=== PATIENT | male | born 1950 | race Caucasian/White ===

== ENCOUNTER 2018-07-21 21:26 | Emergency (ER) | payer OTHER, SELFPAY ==
[2018-07-21 21:28] VITALS: BP 155/81; PULSE 84; RESP 20; TEMP 36.4; O2SAT 96; BMI 27.4
--- NOTE | 2018-07-21 21:47 | ED_ITS ---
HPI - Extremity Problem General Chief complaint: Extremity Injury, Upper Stated complaint: Infection on finger Time Seen by Provider: 07/21/18 21:33 Source: patient and family Mode of arrival: ambulatory Limitations: no limitations History of Present Illness HPI Narrative: 68M nonsmoker presents with his and the chief complaint of R 5th finger pain, swelling, and redness. He denies any specific or known injury. He has full, but painful range of motion. His tetanus is not up to date. He started noting some redness on Wednesday and states is has been slowly worsening. He developed a small pustule in the center of the redness. He denies any known bites. MD Complaint: extremity pain and extremity swelling Onset (ago): day(s) Pain Consistency: constant Location: right Quality: aching Radiation: none Relieving factors: rest Exacerbating factors: range of motion Associated symptoms: denies other symptoms Related Data Previous Rx's Medication Instructions Recorded doxycycline hyclate 100 mg PO BID 7 Days #14 cap 07/21/18 Allergies Allergy/AdvReac Type Severity Reaction Status Date / Time No Known Drug Allergies Allergy Verified 07/21/18 21:32 Review of Systems Review of Systems All systems reviewed & are unremarkable except as noted in HPI and below Constitutional Denies chills, Denies fever(s), Denies lethargy and Denies weakness Eyes Denies change in vision, Denies eye discharge, Denies irritation and Denies loss of vision ENT Ears, Nose, Mouth, and Throat: Denies change in voice, Denies neck pain and Denies sore throat Cardiovascular Denies chest pain, Denies irregular heart rhythm, Denies lightheadedness, Denies palpitations, Denies dyspnea, Denies dyspnea on exertion and Denies orthopnea Respiratory Denies cough, Denies dyspnea, Denies dyspnea on exertion and Denies wheezing Gastrointestinal Gastrointestinal: Denies abdominal pain, Denies change in bowel habits, Denies diarrhea, Denies nausea and Denies vomiting Genitourinary Denies hematuria, Denies flank pain, Denies urinary incontinence and Denies urinary urgency Musculoskeletal Denies neck pain Integumentary/Breasts Denies pruritus, Reports erythema, Denies rash, Reports skin pain, Reports skin swelling and Denies wounds Neurologic Denies confusion, Denies loss of vision and Denies weakness Psychiatric Denies anxiety, Denies confusion, Denies depression, Denies homicidal ideation and Denies suicidal ideation Endocrine Denies palpitations Hematologic/Lymphatic Denies easy bruising Allergic/Immunologic Denies wheezing PFSH Social History Smoking Status: Never smoker Exam Narrative Exam Narrative: GEN: AOx3 and in mild distress EYES: Pupils are equal, round, and reactive to light and accommodation. Extraoccular muscles are intact bilaterally. There is no subconjunctival hemorrhage or exudate. CHEST: Lungs are clear to auscultation bilaterally and free of wheezes, rales, or rhonchi. Heart rate is regular rhythm, there are no murmurs, clicks, rubs, or gallops. There is no chest wall tenderness. ABD: Abdomen is soft and nontender. There is no guarding or rebound. Bowel sounds are normal in all 4 quadrants. There is no mass or organomegaly. EXT: Full painless ROM of all extremities with no loss of sensation or strength. SKIN: R fifth finger with 1x1cm area of erythema on dorsum of finger, well circumscribed. No signs of Flexor Tenosynovitis or abscess. Full but painful ROM. Initial Vital Signs Initial Vital Signs: Vital Signs Temperature 97.5 F L 07/21/18 21:28 Pulse Rate 84 07/21/18 21:28 Respiratory Rate 20 07/21/18 21:28 Blood Pressure 155/81 H 07/21/18 21:28 Pulse Oximetry 96 07/21/18 21:28 Course Orders Ordered: ED Orders 07/21/18 22:01 XR finger RT min 2V Stat Discontinued Medications Diphtheria/Tetanus/Acell Pertussis (Adacel) 0.5 ml IM .ONCE ONE Stop: 07/21/18 22:03 Last Admin: 07/21/18 22:08 Dose: 0.5 ml Doxycycline Hyclate (Vibramycin) 100 mg PO NOW ONE Stop: 07/21/18 22:03 Last Admin: 07/21/18 22:08 Dose: 100 mg Vital Signs - 8 hr 07/21/18 21:28 07/21/18 22:59 Temperature 97.5 F L Pulse Rate 84 81 Respiratory Rate 20 16 Blood Pressure 155/81 H Blood Pressure [Left Arm] 151/81 H Pulse Oximetry 96 98 Discharge Plan Departure Patient Disposition: Home Clinical Impression: Cellulitis of finger of right hand Discharge Date/Time: 07/21/18 23:02 Interventions: ED Discharge Assessment Last Done: 07/21/18 23:01 Instructions: DI for Cellulitis -- Adult Activity Restrictions/Additional Instructions: *You have been diagnosed with [ Right Fifth Finger Cellulitis ] *What to do: *Take medications as directed *Follow up with your primary care provider in 2-3 days, call for an appointment. Let them know you were seen in the Emergency Department and that we ask that you be seen in follow up *Return to ER if you should have any new, worsening or concerning symptoms , such as [increasing swelling, pain, fever >101F ] Prescriptions: New doxycycline hyclate 100 mg capsule 100 mg PO BID 7 Days Qty: 14 RF: 0
--- NOTE | 2018-07-21 22:01 | DI.RAD.S_ITS ---
PROCEDURE: XR FINGER RT MIN 2V INDICATIONS: wound, possible foreign body TECHNIQUE: AP hand, 2 views of the right finger(s) acquired. COMPARISON: None. FINDINGS: Bones: No fractures or dislocations. No suspicious bony lesions. Diffuse interphalangeal, MCP and first CMC joint degeneration. There is also chronic appearing calcification projecting at the ulnar styloid. Chronic appearing intra-articular fracture involving the little finger proximal phalangeal base Little finger diffuse soft tissue swelling. No definite underlying focal osseous destruction. IMPRESSION: Diffuse right hand joint degeneration. No radiopaque foreign body. No evidence of focal osseous destruction. Dictated by: Albert Cali M.D. on 07/22/2018 at 8:37 Approved by: Albert Cali M.D. on 07/22/2018 at 8:40
[2018-07-21] MEDS: DOXYCYCLINE HYCLATE 100 MG TABLET PO (22:08)
[2018-07-21] MEDS: TET,DIPH,PERTUSS(ACELL),VAC/PF 0.5 ML SYRINGE IM (22:08)
[2018-07-21 22:59] VITALS: BP 151/81; PULSE 81; RESP 16; O2SAT 98
== END 2018-07-21 23:02 | disposition home or self-care (01) ==
PROVIDERS: Emergency Provider Emergency Medicine
DX: L03.011 Cellulitis of right finger (principal)
CPT/HCPCS: 73140; 90471; 99282; 99283; 90715

== ENCOUNTER 2021-10-11 20:26 | Emergency (ER) | payer OTHER, SELFPAY ==
[2021-10-11 20:37] VITALS: BP 150/75; PULSE 82; RESP 18; TEMP 36.8; O2SAT 97; BMI 23.7
--- NOTE | 2021-10-11 20:45 | DI.RAD.S_ITS ---
PROCEDURE: XR ANKLE LT MIN 3V INDICATIONS: Painful left ankle; possible fracture TECHNIQUE: 3 views of the ankle were acquired. COMPARISON: None. FINDINGS: Bones: No fractures or dislocations. Ankle mortise is normally aligned. No suspicious bony lesions. Soft tissues: No tibiotalar joint effusion. Achilles tendon appears normal. IMPRESSION: No trauma found. Dictated by: Derrick Plunkett M.D. on 10/11/2021 at 21:38 Approved by: Derrick Plunkett M.D. on 10/11/2021 at 21:39
--- NOTE | 2021-10-11 22:42 | ED_ITS ---
HPI - Extremity Problem General Chief complaint: Extremity Problem,Nontraumatic Stated complaint: Lt. foot pain unable to bear weight Time Seen by Provider: 10/11/21 22:13 Source: patient Mode of arrival: Wheelchair History of Present Illness HPI Narrative: Patient is a 71-year-old male who has here for evaluation left foot and ankle pain. He states that the symptoms occurred just a few hours ago. There was no specific injury although he states that he squatted down to pick something up and when he stood up he had discomfort. He has had a quite a bit of discomfort with putting weight on the area. There are several specific areas where he is having pain around his left foot. He contacted the nurse advice line who advised that he come the emergency department for further evaluation. Related Data Allergies Allergy/AdvReac Type Severity Reaction Status Date / Time No Known Drug Allergies Allergy Verified 07/21/18 21:32 Review of Systems Constitutional Constitutional: Reports system reviewed and no additional complaints, except as documented Musculoskeletal Musculoskeletal: Reports system reviewed and no additional complaints, except as documented and Reports as per HPI Integumentary/Breasts Skin/Breast: Reports system reviewed and no additional complaints, except as documented Patient History Social History Smoking Status: Former smoker Smoking Status: Former smoker alcohol intake frequency: holidays/special occasions only Substance Use Type: does not use Exam Initial Vital Signs Initial Vital Signs: Vital Signs Temperature 98.3 F 10/11/21 20:37 Pulse Rate 82 10/11/21 20:37 Respiratory Rate 18 10/11/21 20:37 Blood Pressure 150/75 H 10/11/21 20:37 Pulse Oximetry 97 10/11/21 20:37 HENMT Head: normal to inspection and normocephalic Cardio Pulses: dorsalis pedis present Skin General: no rashes or lesions noted Neuro Sensory Exam: no sensory deficits noted Extrem Other: No knee discomfort, no proximal fibular discomfort, no Achilles tendon d iscomfort. Patient does have tenderness over the inferior portion of both the medial and lateral malleolus and also over the anterior tibiotalar joint. No tenderness along the base of the 5th metatarsal. No tenderness along was frontal in. No tenderness to the forefoot. Course Orders Ordered: ED Orders 10/11/21 20:45 XR ankle LT min 3V Stat Vital Signs Vital signs: Vital Signs - 8 hr 10/11/21 20:37 Temperature 98.3 F Pulse Rate 82 Respiratory Rate 18 Blood Pressure 150/75 H Pulse Oximetry 97 MDM - Extremity (Nontraumatic) Imaging Data Extremity x-ray #1: Radiologist's Impression: [address] [address] XRay Report Signed Patient: Marcial Macias MR#: [id number] : 1950 Acct:[id number] Age/Sex: 71 / M Date of Service: 10/11/21 Loc: ED Accession Number: [id number] ?? Procedure: XR ankle LT min 3V Ordering Provider: Zander Woodard D.O. PROCEDURE:? XR ANKLE LT MIN 3V ? INDICATIONS:? Painful left ankle; possible fracture ? TECHNIQUE:? 3 views of the ankle were acquired.? ? COMPARISON:? None. ? FINDINGS:? ? Bones:? No fractures or dislocations.? Ankle mortise is normally aligned.? No suspicious bony lesions.? ? Soft tissues:? No tibiotalar joint effusion.? Achilles tendon appears normal.? ? ? IMPRESSION:? No trauma found. ? Dictated by: Derrick Plunkett M.D. on 10/11/2021 at 21:38 ? ? Approved by: Derrick Plunkett M.D. on 10/11/2021 at 21:39?? [facility] Narrative Medical decision making narrative: X-ray does not show any signs of fracture. Low suspicion for gout. Low suspicion for infection. He does have tenderness over the ligaments/tendons of the foot. Given the benign exam and also the lack of fracture I feel that we can treat his symptoms like a sprained ankle. We did discuss care instructions return precautions. He expressed understanding and agreement. Discharge Plan Departure Patient Disposition: Home Clinical Impression: Ankle sprain Instructions: DI for Ankle Sprain, How To Perform RICE (Rest, Ice, Compress, Elevate) Activity Restrictions/Additional Instructions: I recommend that you keep your foot elevated and keep ice over the area. You can take Tylenol or ibuprofen for the discomfort. Contact your primary doctor for a follow-up. There were no fractures noted on the x-ray so you can walk on your leg as needed. Return to the emergency department for any new or worsening symptoms. Referrals: Matthew Sunshine MD [Primary Care Provider] -
== END 2021-10-11 22:48 | disposition home or self-care (01) ==
PROVIDERS: Emergency Provider Emergency Medicine; PCP Family Medicine
DX: S93.402A Sprain of unspecified ligament of left ankle, initial encounter (principal); X50.9XXA Other and unspecified overexertion or strenuous movements or postures, initial encounter
CPT/HCPCS: 73610; 99281; 99283